=== PATIENT | female | born 1985 | race Caucasian/White ===

== ENCOUNTER 2023-07-18 17:17 | Emergency (ER) | payer BC, SELFPAY ==
[2023-07-18 17:22] VITALS: BP 157/93
[2023-07-18 17:40] LABS: % Basophils 1.1 % (0-2); % Eosinophils 1.7 % (0-6); % Immature Granulocytes 0.4 % (0-0.5); % Lymphocytes 40.9 % (20.5-51.1); % Monocytes 7.7 % (1.7-9.3); % Neutrophils 48.2 % (42.2-75.2); Absolute Basophils 0.1 10^3/uL (0-0.2); Absolute Eosinophils 0.1 10^3/uL (0-0.7); Absolute Monocytes 0.6 10^3/uL (0.1-0.6); Absolute Neutrophils 3.6 10^3/uL (1.4-6.5); Hematocrit 38.1 % (37.0-47.0); Hemoglobin 12.9 g/dL (12.0-16.0); Mean Corp Hgb Conc. 33.9 g/dL (33.0-37.0); Mean Corpuscular Hgb 29.2 pg (27.0-31.0); Mean Corpuscular Volume 86.2 fL (81.0-99.0); Mean Platelet Volume 9.6 fL (7.4-10.4); Nucleated Red Blood Cells % 0 %; Platelet Count 281 10^3/uL (130-400); Red Blood Cell Count 4.42 10^6/uL (4.20-5.40); Red Cell Dist. Width 12.1 % (11.5-14.5); White Blood Cell Count 7.4 10^3/uL (4.8-10.8)
[2023-07-18 18:03] VITALS: BP 122/75
[2023-07-18 18:05] LABS: ALT (SGPT) 23 U/L (0-35); AST (SGOT) 26 U/L (14-36); Albumin 4.8 g/dl (3.5-5.0); Alkaline Phosphatase 86 U/L (38-126); Blood Urea Nitrogen 14 mg/dl (7-17); Calcium 9.6 mg/dl (8.4-10.2); Carbon Dioxide 26 mmol/L (22-30); Chloride 105 mmol/L (98-107); Glucose 104 mg/dl (70-99); Potassium 4.6 mmol/L (3.5-5.1); Sodium 139 mmol/L (135-145); Total Bilirubin 0.6 mg/dl (0.2-1.3); Total Protein 7.4 g/dl (6.3-8.2); eGFR > 60.00
--- NOTE | 2023-07-18 18:31 | ED.GENMED ---
History of Present Illness
General
Chief Complaint: Abdominal Pain
Source: patient
Exam Limitations: none
Time Seen by Provider: 07/18/23 17:58
Travel History
Have you had any contact with someone who has COVID-19?: No
Do you have any symptoms of coronavirus? Fever > 100 degrees, chills, cough, shortness of breath, sore throat, loss of taste or smell, muscle aches, or headache?: No
History of Present Illness
History of Present Illness:
This is a 37 year old female that comes in with c/o left upper abd pain. States that she had a colonoscopy last Tuesday. States that since that time she has this on and off left upper abd pain under the ribs. States that it is a cramping burning pain
with nausea. States that she has no appetite. States that she has also felt like she had palpitations or this empty feeling. States that they reason they did the colonoscopy was due to her having gas, constipation and Bloating. States that she has
also had a headache. Denies any fever, chills, chest pain, SOB, vomiting, diarrhea, dizziness, urinary burning.
Past History
Past History
ED Past Medical History: None; Negative Asthma, HTN, Hypercholesterolemia or NIDDM
ED Past Surgical History: Appendectomy and Cholecystectomy
Social History
Tobacco: Former smoker
Alcohol: None
Personal:
Living: with family
Review of Systems
Review of Systems
All Other Systems: ROS reviewed and negative except as documented in HPI and ROS
Constitutional: Reports no symptoms; Denies fever or chills
EENT: Reports no symptoms
Respiratory: Reports no symptoms; Denies cough or trouble breathing
Cardiac: Reports no symptoms; Denies chest pain
ABD/GI: Reports abdominal pain, nausea and other (Decreased appetite); Denies vomiting or diarrhea
: Reports no symptoms; Denies dysuria, frequency or urgency
Musculoskeletal: Reports no symptoms
Skin: Reports no symptoms
Neurological: Reports headache; Denies dizzy
Psychiatric: Reports no symptoms
Phy Exam
General Physical Exam
General Presentation: well appearing and no apparent distress
General age: appears stated age
General Skin: warm and dry
General Habitus: normal
General Mental: alert
General Hydration: appears well hydrated
ENT Exam
ENT Exam: TM's normal, pharynx normal and neck supple
Eye Exam
Eye Exam: EOMI
Cardiovascular Exam
Cardiovascular Exam: regular rate/rhythm, no edema, no murmur and normal peripheral pulses
Pulmonary Exam
Pulmonary Exam: lungs clear, no respiratory distress, no rales, chest non tender, no crackles, no rhonchi, no wheezing and no cough
Gastrointestinal Exam
Gastrointestinal Exam: normal bowel sounds, non tender, soft, no organomegaly, no pulsatile mass and non distended
Musculoskeletal Exam
Musculoskeletal Exam: full ROM and no edema
Skin Exam
Skin Exam: normal color, warm/dry, no rash and no petechia
Psychiatric Exam
Psychiatric Exam: normal mood/affect
Course
Orders/Labs/Results
Orders:
Orders
07/18/23 17:23
Electrocardiogram (*1) Urgent
Reason for Study: Palpitations
07/18/23 17:24
EKG- Treatment ONCE
07/18/23 17:29
Complete Blood Count/With Diff Urgent
Comprehensive Metabolic Panel Urgent
HCG, Serum Qualitative Screen Urgent
07/18/23 18:30
CT Abd/pelvis W Iv Cont Urgent
Comment:
Reason For Exam: Left upper abd pain
0.9% Sodium Chloride 1000 ml [Nss] 1,000 ml IV BOLUS
Pantoprazole [Protonix IV] 40 mg IV NOW STA
07/18/23 18:48
Urinalysis Reflex To Culture Urgent
Date Specimen was Collected: 07/18/23
Time Specimen was Collected: 18:44
07/18/23 18:50
Pantoprazole [Protonix IV] 40 mg .ROUTE .STK-MED ONE
07/18/23 20:23
Add On- LAB Urgent
Tests Added?: HCG
Abnormal Lab Results
07/18/23
17:29
Glucose 104 H mg/dl
(70-99)
07/18/23 17:29
07/18/23 17:29
glucose nonfasting. Otherwise normal labs, Urine negative for infection. HCG negative.
Vital Signs
Initial and Last Documented VS:
Initial Vital Signs
Temp Pulse Resp BP Pulse Ox
97.9 F 86 16 157/93 100
07/18/23 17:22 07/18/23 17:22 07/18/23 17:22 07/18/23 17:22 07/18/23 17:22
Last Documented Vital Signs
Temp Pulse Resp BP Pulse Ox
97.9 F 74 12 130/91 100
07/18/23 17:22 07/18/23 20:00 07/18/23 20:00 07/18/23 20:00 07/18/23 17:22
MDM/Problems Addressed
Differential Diagnosis Includes:
gastritis, diverticulitis
MDM/Problems Addressed:
This is a 37 year old female that comes in with c/o left upper abd pain. States that this comes and goes. States that she has been nauseated and has no appetite.
Will get labs and CT scan. Will medicate with Protonix and Carafate after CT for the burning.
Back into see patient. States that the Protonix decreased her discomfort. Explained that her blood work is normal along with the urine being negative. CT is also negative for any acute process. Explained that this may be a Gastritis. Will place
patient on Protonix and Carafate. Patient to follow up with the GI specialist or the family doctor. Return with any concerns.
Chronic conditions affecting care:
NA
Acute Exacerbation and/or Progression of Chronic Illness:
NA
*Radiology
Radiology exam reviewed: radiology read reviewed (CT -Status post appendectomy. No evidence for acute abnormality of the abd or pelvis. NO evidence of free intraperitoneal air. No evidence for abdominal visceral injury. Unilateral right-sided pars
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 No evidence for spondylolisthesis at L5-S1. )
*Pulse Oximetry
Patient hypoxic: no
*EKG
Interpreted by ED Provider?: Yes
Heart Rate: 77
Rate: normal
Rhythm: sinus
[place]: normal axis
Interval: normal interval
QRS Pattern: normal QRS
Ischemia: no ischemia
*[employer] Interpretation
Rate: normal
Heart Rate: 81
Rhythm: sinus
*Critical Care Note
Total Time (30-74mins, 75-104mins- exclusive of procedures): Not Applicable
ED Attending Note
-
Portions of this chart may have been created with voice recognition software.� Occasional wrong word or��sound alike� substitutions may have occurred due to the inherent limitations of voice recognition software.
Discharge Plan
Departure
Patient Disposition: Home (Routine Discharge)
Date of Disposition: 07/18/23
Time of Disposition: 22:17
Patient with high blood pressure during this ER visit?: Yes
Condition: Good
Covid-19: Not Applicable
Discharge Problem:
Gastritis
Instructions: Gastritis (DC), Ulcer and Gastritis Diet, BLOOD PRESSURE
Prescriptions:
New
pantoprazole [Protonix] 40 mg tablet,delayed release (DR/EC)
40 mg PO DAILY Qty: 30 0RF
sucralfate [Carafate] 1 gram tablet
1 g PO ACHS Qty: 40 0RF
Rx Instructions:
30min-1hour before meals and HS. May dissolve in 10ml of water and drink
Referrals:
Luan Freitas MD [Family Provider] - Call in 1-3 days for appt
Activity Restrictions/Additional Instructions:
As discussed, your blood work is normal and your urine is negative for infection. Your CT is negative for any acute process. This may be a gastritis. You have had 2 prescriptions sent to your Pharmacy. The first is Protonix 40mg that you will take
daily. The second is Carafate that you will take 30min to 1 hour before meals and again at Bedtime. You may dissolve this tablet in 10 ml of water and drink. Follow up with the family doctor or the GI specialist as needed. IF YOU HAVE ANY OTHER
CONCERNS PLEASE RETURN TO THE EMERGENCY ROOM
Interventions
Interventions:
*Risk Screen - Suicide Last Done: 07/18/23 17:22
*General Assessment Last Done: 07/18/23 17:22
*Neglect/Abuse Screening Last Done: 07/18/23 17:22
*ED COVID-19 Vaccine History Last Done: 07/18/23 17:22
GL-Ktjnbq-Xozkdijdyr Assessment Last Done: 07/18/23 18:19
[2023-07-18] MEDS: PROTONIX IV 40 MG IV (18:53)
[2023-07-18] MEDS: NSS 1000 IV (18:53)
[2023-07-18 19:00] VITALS: BP 120/79
[2023-07-18 19:00] LABS: Urine Albumin Negative (Neg - Trace); Urine Bilirubin Negative (Negative); Urine Character Clear (Clear); Urine Color Yellow; Urine Glucose Negative (Negative); Urine Ketone Negative (Negative); Urine Leukocyte Negative (Negative); Urine Nitrite Negative (Negative); Urine Occult Blood Negative (Negative); Urine Specific Gravity 1.015 (<1.030); Urine Urobilinogen Negative (Neg - 1+)
[2023-07-18 20:00] VITALS: BP 130/91
[2023-07-18 21:01] LABS: HCG, Serum Qualitative Screen Negative
[2023-07-18 22:24] VITALS: BP 134/87
== END 2023-07-18 22:40 | disposition home or self-care (01) ==
LOC: EMR 17:17
PROVIDERS: Clinical Nurse Specialist Family Health; Emergency Medicine; EMERGENCY PHYSICIAN Emergency Medicine; FAMILY PHYSICIAN Internal Medicine
DX: K29.70 Gastritis, unspecified, without bleeding (principal); R03.0 Elevated blood-pressure reading, without diagnosis of hypertension; Z87.891 Personal history of nicotine dependence
CPT/HCPCS: 99285; 96374; 96361; 74177; 80053; 81003; 84703; 85025; 93005; Q9967